=== PATIENT | male | born 1965 | race Caucasian/White ===

== ENCOUNTER 2022-06-01 10:20 | Outpatient (CLI) | payer OTHER ==
[2022-06-01 11:56] LABS: Anion Gap 13 mmol/L (10-20); BUN (Urea Nitrogen) 11 mg/dL (8.4-25.7); Calc. Creatinine Clearance 0 mL/min (70-130); Calcium 9.4 mg/dL (7.8-10.44); Carbon Dioxide 28 mmol/L (22-29); Chloride 104 mmol/L (98-107); Estimated GFR 87; Glucose 91 mg/dL (70-105); Potassium 4.9 mmol/L (3.5-5.1); Sodium 140 mmol/L (136-145)
== END 2022-06-01 10:21 | disposition home or self-care (01) ==
LOC: CSHLAB 10:20
PROVIDERS: ATTEND Surgery
DX: Z01.812 Encounter for preprocedural laboratory examination (principal); K42.9 Umbilical hernia without obstruction or gangrene
CPT/HCPCS: 80048

== ENCOUNTER 2022-06-03 07:15 | Day surgery (SDC) | payer OTHER ==
[2022-06-01 11:10] VITALS: BMI 34.3
[~2022-06-03 07:15] MED LIST: Bupivacaine HCl 0.5%/Epinephrine 1:200,000/PF 30 ml Vial ONE
[2022-06-03 08:01] LABS: Hemoglobin 16.3 g/dL (13.5-17.5); Mean Corpuscular HGB CONC 33.5 g/dL (32.0-36.0); Mean Corpuscular Hemoglobin 29.4 pg (27.0-33.0); Mean Corpuscular Volume 87.7 fl (81.2-95.1); Mean Platelet Volume 10.1 fl (7.4-10.4); Platelet Count 328 10x3/uL (150-450); RBC Distribution Width 12.8 % (11.5-14.5); Red Blood Cell (RBC) Count 5.55 10x6/uL (4.32-5.72)
[2022-06-03] MEDS ORDERED: PROPOFOL 20 ML ONE ×2 (08:28→08:45)
[2022-06-03] MEDS ORDERED: Fentanyl 100 MCG/2 ML VIAL ONE ×2 (08:28→08:29)
[2022-06-03] MEDS ORDERED: Clindamycin/D5W 600 mg/50 ml Premix Bag ONE (08:36)
[2022-06-03] MEDS ORDERED: PHENYLEPHRINE-NS 100 MCG/ML 10 ML SYRINGE ONE (08:50)
[2022-06-03] MEDS ORDERED: Ondansetron PF 4 MG/2 ML Vial ONE (08:58)
[2022-06-03] MEDS ORDERED: Dexamethasone 4 mg/ml Vial ONE (08:58)
[2022-06-03] MEDS ORDERED: Acetaminophen 325 MG TAB PO PRN (09:33)
[2022-06-03] MEDS ORDERED: HYDROcodone/Acetaminophen 5/325 mg Tablet PO PRN (09:33)
== END 2022-06-03 10:30 | disposition home or self-care (01) ==
LOC: CSHSDC 07:15
PROVIDERS: ATTEND Surgery
PROC: 0WQF0ZZ Repair Abdominal Wall, Open Approach (ICD-10-PCS; principal; 2022-06-03)
DX: K42.9 Umbilical hernia without obstruction or gangrene (principal); I26.99 Other pulmonary embolism without acute cor pulmonale; I10 Essential (primary) hypertension; E78.5 Hyperlipidemia, unspecified; E66.9 Obesity, unspecified; Z68.34 Body mass index [BMI] 34.0-34.9, adult; Z87.891 Personal history of nicotine dependence; Z79.01 Long term (current) use of anticoagulants; Z79.899 Other long term (current) drug therapy; Z88.0 Allergy status to penicillin
CPT/HCPCS: 36415; 85027; J1100; J2405; J2704; J3010; J3490